=== PATIENT | male | born 1975 | race Caucasian/White ===

== ENCOUNTER 2021-02-27 13:36 | Emergency (ER) | payer OTHER, MEDICAID ==
[~2021-02-27] VITALS: Ht 182.9 cm; Wt 120.2 kg
[2021-02-27 13:40] VITALS: BP 157/103
--- NOTE | 2021-02-27 13:47 | NUR ---
Patient transferred to bed 7 via wheelchair by triage nurse. RN evaluating the patient at bedside.
--- NOTE | 2021-02-27 14:00 | NUR ---
Dr. Cool at pt bedside for further evaluation.
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
--- NOTE | 2021-02-27 14:15 | NUR ---
YULIANA Beth evaluating patient at bedside.
[2021-02-27] MEDS ORDERED: KETOROLAC 30 MG/ML VIAL IM ONE (14:25)
--- NOTE | 2021-02-27 15:15 | NUR ---
Patient reports no relief. States pain remains 8/10 at this time. Denies nausea.
[2021-02-27] MEDS ORDERED: FAMO-92 PO (15:26)
[2021-02-27] MEDS ORDERED: IBUP-2213 PO (15:26)
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
--- NOTE | 2021-02-27 15:34 | NUR ---
pt right knee wrapped with 3" keke wrap and given crutches. crutches were adjusted to pt size and height and pt states that they all ready know how to use crutches and showed demenstration. rn notified
--- NOTE | 2021-02-27 15:40 | NUR ---
EMT at bedside for crutch instructions. Patient successfully demonstrated how to utilize crutches.
[2021-02-27 15:47] VITALS: BP 157/92
--- NOTE | 2021-02-27 15:47 | NUR ---
Patient discharged with v/s stable. Written and verbal after care instructions given and explained. Patient alert, oriented and verbalized understanding of instructions. Ambulatory with steady gait via crutches. All questions addressed prior to discharge. ID band removed. Patient advised to follow up with PMD. Rx of Famotidine, Ibuprofen given. Patient educated on indication of medication including possible reaction and side effects. Opportunity to ask questions provided and answered.
== END 2021-02-27 15:47 | disposition home or self-care (01) ==
LOC: MED 13:36
DX: S80.11XA Contusion of right lower leg, initial encounter (principal); Z88.0 Allergy status to penicillin; Z79.899 Other long term (current) drug therapy; Z98.890 Other specified postprocedural states; V09.9XXA Pedestrian injured in unspecified transport accident, initial encounter; Y93.89 Activity, other specified; Y92.89 Other specified places as the place of occurrence of the external cause; Y99.8 Other external cause status
CPT/HCPCS: 73130; 73590; 96372; 99284; J1885

== ENCOUNTER 2022-06-03 11:36 | Emergency (ER) | payer MEDICAID ==
[~2022-06-03] VITALS: Ht 182.9 cm; Wt 116.1 kg
[~2022-06-03 11:36] MED LIST: FAMO-92 PO; IBUP-2213 PO
[2022-06-03 11:43] VITALS: BP 130/75
[2022-06-03] MEDS ORDERED: KETOROLAC 30 MG/ML VIAL IM ONE (13:45)
[2022-06-03] MEDS ORDERED: KETOROLAC 30 MG/ML VIAL ONE (14:51)
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
[2022-06-03] MEDS ORDERED: IBUP-2213 PO (15:43)
[2022-06-03 15:54] VITALS: BP 134/96
--- NOTE | 2022-06-03 15:54 | NUR ---
Patient discharged with v/s stable. Written and verbal after care instructions ABOUT ACUTE KNEE PAIN given and explained. Patient alert, oriented and verbalized understanding of instructions. Ambulatory with steady gait. All questions addressed prior to discharge. ID band removed. Patient advised to follow up with PMD. Rx of IBUPROFEN given. Patient educated on indication of medication including possible reaction and side effects. Opportunity to ask questions provided and answered.
== END 2022-06-03 15:54 | disposition home or self-care (01) ==
LOC: MED 11:36
DX: S80.02XA Contusion of left knee, initial encounter (principal); F12.90 Cannabis use, unspecified, uncomplicated; Z72.89 Other problems related to lifestyle; X58.XXXA Exposure to other specified factors, initial encounter; Y93.89 Activity, other specified; Y92.89 Other specified places as the place of occurrence of the external cause; Y99.8 Other external cause status
CPT/HCPCS: 73562; 93971; 96372; 99284; J1885; Q0092

== ENCOUNTER 2022-12-04 10:37 | Emergency (ER) | payer MEDICAID, OTHER ==
[~2022-12-04] VITALS: Ht 182.9 cm; Wt 113.4 kg
[2022-12-04 10:49] VITALS: BP 130/94
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
[2022-12-04] MEDS ORDERED: LIDOCAINE 5% 1 EA PATCH TP ONE (11:20)
[2022-12-04] MEDS ORDERED: KETOROLAC 30 MG/ML VIAL IM ONE (11:20)
[2022-12-04] MEDS ORDERED: FAMO-90 PO (12:16)
[2022-12-04] MEDS ORDERED: CYCL-711 PO (12:16)
[2022-12-04] MEDS ORDERED: LID5T TP (12:16)
[2022-12-04] MEDS ORDERED: NAPR-54 PO (12:16)
== END 2022-12-04 12:26 | disposition home or self-care (01) ==
LOC: MED 10:37
DX: S39.012A Strain of muscle, fascia and tendon of lower back, initial encounter (principal); R03.0 Elevated blood-pressure reading, without diagnosis of hypertension; Z88.0 Allergy status to penicillin; Z79.899 Other long term (current) drug therapy; X58.XXXA Exposure to other specified factors, initial encounter; Y93.89 Activity, other specified; Y92.89 Other specified places as the place of occurrence of the external cause; Y99.8 Other external cause status
CPT/HCPCS: 96372; 99283; J1885